=== PATIENT | female | born 2000 ===

== ENCOUNTER → 2024-05-08 10:34 | Outpatient (ROUT) | payer BC, SELFPAY ==
[2024-05-08 11:12] LABS: HCG Quantitative /Beta subunit 1594.5 mIU/mL
== END ==
PROVIDERS: Visit Provider Nurse Practitioner Obstetrics & Gynecology
DX: O26.859 Spotting complicating pregnancy, unspecified trimester (principal); O36.80X0 Pregnancy with inconclusive fetal viability, not applicable or unspecified
CPT/HCPCS: 84702